=== PATIENT | female | born 1990 | race Caucasian/White ===

== ENCOUNTER 2022-01-22 07:00 | Day surgery (SDC) | payer OTHER | END 2022-01-22 17:00 | disposition home or self-care (01) | LOC: CIR.AMB 07:00 | PROVIDERS: ATTEND Obstetrics & Gynecology | DX: O02.1 Missed abortion (principal); Z20.822 Contact with and (suspected) exposure to COVID-19 ==

== ENCOUNTER 2023-07-10 10:12 | Outpatient (CLI) | payer OTHER | END 2023-07-10 10:50 | disposition home or self-care (01) | LOC: NST 10:12 | PROVIDERS: ATTEND Obstetrics & Gynecology | DX: Z34.83 Encounter for supervision of other normal pregnancy, third trimester (principal) ==

== ENCOUNTER 2023-07-31 11:25 | Outpatient (CLI) | payer OTHER | END 2023-07-31 12:09 | disposition home or self-care (01) | LOC: NST 11:25 | PROVIDERS: ATTEND Obstetrics & Gynecology Maternal & Fetal Medicine | DX: Z34.83 Encounter for supervision of other normal pregnancy, third trimester (principal) ==

== ENCOUNTER → 2023-08-04 | Outpatient (CLI) | payer OTHER | END | disposition home or self-care (01) | LOC: NST 13:37 | PROVIDERS: ATTEND Obstetrics & Gynecology | DX: Z34.83 Encounter for supervision of other normal pregnancy, third trimester (principal) ==

== ENCOUNTER 2023-09-01 12:14 | Outpatient (CLI) | payer OTHER | END 2023-09-01 13:18 | disposition home or self-care (01) | LOC: NST 12:14 | PROVIDERS: ATTEND Obstetrics & Gynecology | DX: Z34.83 Encounter for supervision of other normal pregnancy, third trimester (principal) ==

== ENCOUNTER 2023-09-15 10:47 | Outpatient (CLI) | payer OTHER | END 2023-09-15 11:27 | disposition home or self-care (01) | LOC: NST 10:47 | PROVIDERS: ATTEND Obstetrics & Gynecology Maternal & Fetal Medicine | DX: Z34.83 Encounter for supervision of other normal pregnancy, third trimester (principal) ==

== ENCOUNTER 2023-09-15 13:47 | Inpatient (IN) | payer OTHER ==
[~2023-09-15] VITALS: Ht 162.6 cm; Wt 73.9 kg
[2023-09-18] MEDS ORDERED: PRENATABS RX T1 EACH PO (09:34)
[2023-09-18] MEDS ORDERED: RINGERS SOLUTION,LACTATED 1,000 ML IV SCH (09:45)
[2023-09-18] MEDS ORDERED: OXYTOCIN 500 ML IV SCH (09:45)
[2023-09-18 10:07] LABS: PH,URINE 6.5 (5.0-8.0); URINE APPEARANCE Clear; URINE BILIRRUBIN Negative (NEGATIVE); URINE BLOOD Moderate; URINE COLOR Yellow; URINE GLUCOSE Negative (NEGATIVE); URINE LEUKOCYTE Trace; URINE NITRATE Negative; URINE PROTEIN 30 (NEGATIVE)
[2023-09-18 10:09] LABS: HEMOGLOBIN 14.2 g/dL (12.0-15.00); MEAN CELL VOLUME 92.6 fL (80.00-100.00); MEAN CORPUSCULAR HEMOGLOBIN 32.2 pg (27.00-32.0); MEAN CORPUSCULAR HGB CONC 34.8 g/dl (32.0-36.0); PLATELET COUNT 222 K/uL (150-450); RED BLOOD COUNT 4.42 M/uL (4.00-6.00)
[2023-09-18 10:10] LABS: URINE BACTERIA 142.3 uL (0.0-1933); URINE EPITHELIAL CELLS 22.7 uL (0.0-38.8); URINE RBC 40.6 uL (0.0-20.8); URINE WBC 19.9 uL (0.0-23.2)
[2023-09-18 10:27] LABS: INR < 0.93; PARTIAL THROMBOPLASTIN TIME 26.7 SECONDS (22.0-34.0)
[2023-09-18 10:32] LABS: ALBUMIN 2.8 gm/dL (3.4-5.0); BILIRUBIN TOTAL 0.6 mg/dL (0.3-1.2); CALCIUM 9.1 mg/dL (8.5-10.1); CREATININE SERUM 0.78 mg/dL (0.55-1.02); GFR 86.14; GLOBULINA 3.4 G/DL (2.4-3.5); POTASSIUM 4.64 mEq/L (3.5-5.1); TOTAL PROTEIN 6.2 gm/dL (6.4-8.2)
[2023-09-18 10:53] LABS: PROTHROMBIN TIME 9.5 SECONDS (9.0-11.5)
[2023-09-18] MEDS ORDERED: PROMETHAZINE HCL 25 MG/ML AMPUL IV PRN (15:00)
[2023-09-18] MEDS ORDERED: MORPHINE SULFATE 4 MG/ML CARTRIDGE IV PRN (15:00)
[2023-09-18] MEDS ORDERED: CHLORHEXIDINE GLUCONATE 120 ML BOTTLE TOP ONE ×2 (15:21→15:23)
[2023-09-18] MEDS ORDERED: ERYTHROMYCIN BASE 1 GM TUBE OP ONE ×2 (15:21→15:23)
[2023-09-18] MEDS ORDERED: OXYTOCIN 20 UNITS/1000ML RL PIGGYBAG IV ONE ×3 (15:22→21:38)
[2023-09-18] MEDS ORDERED: CHLORHEXIDINE GLUCONATE 120 ML BOTTLE TP SCH (18:00)
[2023-09-18] MEDS ORDERED: IBUprofen 400 MG TABLET PO PRN (18:00)
[2023-09-18] MEDS ORDERED: ERYTHROMYCIN BASE 1 GM TUBE OP SCH (18:00)
[2023-09-18] MEDS ORDERED: DOCUSATE SODIUM 100MG CAP PO SCH (18:01)
[2023-09-18] MEDS ORDERED: LIDOCAINE HCL 1% 10ML VIAL IJ ONE (18:15)
[2023-09-18] MEDS ORDERED: OXYTOCIN 1,000 ML IV SCH (18:15)
[2023-09-18] MEDS ORDERED: KETOROLAC TROMETHAMINE 30 MG VIAL ONE (18:40)
[2023-09-18] MEDS ORDERED: CEFAZOLIN SODIUM 1,000 MG VIAL ONE (18:44)
[2023-09-18] MEDS ORDERED: METHYLERGONOVINE MALEATE 0.2 MG/ML AMPUL ONE (19:18)
[2023-09-18] MEDS ORDERED: METHYLERGONOVINE MALEATE 0.2 MG/ML AMPUL IM STA (19:37)
[2023-09-18] MEDS ORDERED: CEFAZOLIN SODIUM 1,000 MG VIAL IV STA (19:37)
[2023-09-18] MEDS ORDERED: CARBOPROST TROMETHAMINE 250 MCG/ML AMPUL IM ONE ×2 (20:41→21:15)
[2023-09-19] MEDS ORDERED: CARBOPROST TROMETHAMINE 250 MCG/ML AMPUL IM PRN (01:00)
[2023-09-19 08:56] LABS: HEMOGLOBIN 10.7 g/dL (12.0-15.00); MEAN CELL VOLUME 92.1 fL (80.00-100.00); MEAN CORPUSCULAR HEMOGLOBIN 31.7 pg (27.00-32.0); MEAN CORPUSCULAR HGB CONC 34.4 g/dl (32.0-36.0); PLATELET COUNT 189 K/uL (150-450); RED BLOOD COUNT 3.37 M/uL (4.00-6.00); RED CELL DISTRIBUTION WIDTH 14.3 % (11.5-14.5)
[2023-09-19] MEDS ORDERED: PNV,CALCIUM 72/IRON/FOLIC ACID 1 TAB TABLET PO SCH (09:00)
== END 2023-09-20 15:06 | disposition home or self-care (01) | DRG 806 ==
LOC: LDR 09-18 09:28 → OB/GYN 09-18 17:21
PROVIDERS: Obstetrics & Gynecology Gynecology; Pediatrics Neonatal-Perinatal Medicine; ADMIT Obstetrics & Gynecology; ATTEND Obstetrics & Gynecology
PROC: 10E0XZZ Delivery of Products of Conception, External Approach (ICD-10-PCS; principal; 2023-09-18)
PROC: 0KQM0ZZ Repair Perineum Muscle, Open Approach (ICD-10-PCS; 2023-09-18)
PROC: 4A1HXCZ Monitoring of Products of Conception, Cardiac Rate, External Approach (ICD-10-PCS; 2023-09-18)
DX: O70.1 Second degree perineal laceration during delivery (principal); O72.1 Other immediate postpartum hemorrhage; Z37.0 Single live birth; Z3A.38 38 weeks gestation of pregnancy; Z20.822 Contact with and (suspected) exposure to COVID-19